=== PATIENT | female | born 1990 | race Caucasian/White ===

== ENCOUNTER 2018-10-05 00:01 | Emergency (ER) | payer OTHER ==
--- NOTE | 2018-10-05 00:20 | C.PDOC ---
History Of Present Illness 28 y/o female presents to the ED complaining of intermittent chest pain for 3 days. States she felt panicked tonight, and as if she might . 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 She otherwise denies any recent viral il lness, fevers, chills, SOB, nausea, vomiting, numbness, or weakness. Patient is speaking in complete sentences. Time Seen by Provider: 10/05/18 00:19 Chief Complaint (Nursing): Chest Pain History Per: Patient History/Exam Limitations: no limitations Onset/Duration Of Symptoms: Days (x 3), Intermittent Episodes Current Symptoms Are (Timing): Still Present Severity: Moderate Pain Scale Rating Of: 5 Quality: "Pain" Exacerbating Factors: None Recent travel outside of the [place]: No Past Medical History Reviewed: Historical Data, Nursing Documentation, Vital Signs Vital Signs: Last Vital Signs Temp 98 F 10/05/18 00:11 Pulse 78 10/05/18 00:11 Resp 18 10/05/18 00:11 BP 117/79 10/05/18 00:11 Pulse Ox 98 10/05/18 00:11 - Medical History PMH: No Chronic Diseases Surgical History: No Surg Hx Family History: States: No Known Family Hx - Social History Hx Alcohol Use: No Hx Substance Use: No - Immunization History Hx Tetanus Toxoid Vaccination: No Hx Influenza Vaccination: No Hx Pneumococcal Vaccination: No Review Of Systems Constitutional: Negative for: Fever, Chills, Sweats Eyes: Negative for: Vision Change Cardiovascular: Positive for: Chest Pain Respiratory: Negative for: Shortness of Breath, SOB with Excertion Gastrointestinal: Negative for: Nausea, Vomiting, Abdominal Pain Neurological: Negative for: Weakness, Numbness, Dizziness Psych: Positive for: Anxiety Physical Exam - Physical Exam Appears: Non-toxic, No Acute Distress, Other (Appears anxious) Skin: Warm, Dry Head: Normacephalic Eye(s): bilateral: Normal Inspection Oral Mucosa: Moist Neck: Normal ROM Chest: Symmetrical, No Tenderness Cardiovascular: Rhythm Regular Respiratory: No Rales, No Rhonchi, No Wheezing Gastrointestinal/Abdominal: Soft, No Tenderness, No Distention Extremity: Normal ROM Extremity: Bilateral: Atraumatic, Normal Color And Temperature Pulses: Left Dorsalis Pedis: Normal, Right Dorsalis Pedis: Normal Neurological/Psych: Oriented x3 Gait: Steady ED Course And Treatment - Laboratory Results Result Diagrams: 10/05/18 00:51 10/05/18 00:51 ECG: Interpreted By Me, Viewed By Me ECG Rhythm: Sinus Rhythm (85), Nonspecific Changes O2 Sat by Pulse Oximetry: 98 (RA) Pulse Ox Interpretation: Normal - Radiology CXR: Interpreted by Me, Viewed By Me CXR Interpretation: No: Infiltrates, Fracture, Pnemothorax Progress Note: Blood work and urine sent to the lab. EKG reviewed. Patient given 325mg Aspirin x1. Reevaluation Time: 02:58 Reassessment Condition: Improved Medical Decision Making Medical Decision Making: I considered the following diagnoses: acute coronary syndrome, pulmonary embolism, lower respiratory infection, aortic dissection/aneurysm, pneumothorax, pericarditis, esophagitis/GERD, zoster and esophageal rupture but found them to be unlikely based on the history, physical exam, and diagnostics. My conclusions regarding the unlikely diagnoses were based on: the absence of significant EKG abnormalities, the lack of suggestive x-ray findings, the absence of significant abnormalities on cardiac monitoring, the absence of asymmetric pulses. P tis cp free and wants to go home Upon provider reevaluation patient is feeling better, is medically stable, and requires no further treatment in the ED at this time. Patient will be discharged home . Counseling was provided and all questions were answered regarding diagnosis and need for follow up with the referred clinic. There is agreement to discharge plan. Return if symptoms persist or worsen. Disposition Counseled Patient/Family Regarding: Studies Performed, Diagnosis, Need For Followup - Disposition Referrals: [facility] [Outside] [facility] [Outside] Disposition: HOME/ ROUTINE Disposition Time: 00:40 Condition: FAIR Additional Instructions: Please return if symptoms recur Instructions: Costochondritis (DC), Anxiety, Adult (DC) Forms: [employer] (Tunisian) - Clinical Impression Clinical Impression: Costochondral chest pain, Anxiety - Scribe Statement The provider has reviewed the documentation as recorded by the Halima Sullivan Provider Attestation: All medical record entries made by the Halima were at my direction and personally dictated by me. I have reviewed the chart and agree that the record accurately reflects my personal performance of the history, physical exam, medical decision making, and the department course for this patient. I have also personally directed, reviewed, and agree with the discharge instructions and disposition.
[2018-10-05] MEDS ORDERED: Aspirin 325 mg EC Tablets PO STA (00:45)
[2018-10-05 00:57] LABS: BASO % 0.5 % (0.0-2.0); EOS # 0.1 K/uL (0.0-0.7); EOS % 1.1 % (0.0-4.0); HEMOGLOBIN 13.9 g/dL (11.0-16.0); LYMPH # 2.3 K/uL (1.0-4.3); LYMPH % 30.4 % (20.0-40.0); MEAN CELL VOLUME 92.1 fL (81.0-99.0); MEAN CORPUSCULAR HEMOGLOBIN 30.9 pg (27.0-31.0); MEAN CORPUSCULAR HGB CONC 33.6 g/dL (33.0-37.0); MEAN PLATELET VOLUME 7.9 fL (7.2-11.7); MONO # 0.6 K/uL (0.0-0.8); MONO % 7.8 % (0.0-10.0); NEUT # 4.6 K/uL (1.8-7.0); NEUT % 60.2 % (50.0-75.0); RBC 4.49 Mil/uL (3.80-5.20); RED CELL DISTRIBUTION WIDTH 13.1 % (11.5-14.5); WHITE BLOOD COUNT 7.6 K/uL (4.8-10.8)
[2018-10-05 00:59] LABS: URINE BILIRUBIN NEGATIVE (NEGATIVE); URINE BLOOD NEGATIVE (NEGATIVE); URINE CLARITY Clear (Clear); URINE COLOR Straw (YELLOW); URINE GLUCOSE (UA) NORMAL (Normal); URINE LEUKOCYTE ESTERASE NEG Leu/uL (Negative); URINE PROTEIN NEGATIVE (NEGATIVE); URINE UROBILINOGEN NORMAL mg/dL (0.2-1.0)
[2018-10-05 01:04] LABS: HCG,QUALITATIVE URINE NEGATIVE (NEGATIVE)
[2018-10-05 01:07] LABS: ALB/GLOB RATIO 1.6 (1.0-2.1); ALBUMIN 4.8 g/dL (3.5-5.0); ALT/SGPT 28 U/L (9-52); AST/SGOT 25 U/L (14-36); BLOOD UREA NITROGEN 19 mg/dL (7-17); CALCIUM 8.8 mg/dl (8.6-10.4); GFR NON-AFRICAN AMERICAN > 60
[2018-10-05 01:13] LABS: BARBITURATES, UR NEGATIVE (NEGATIVE); BENZODIAZEPINES, UR NEGATIVE (NEGATIVE); OPIATES, UR NEGATIVE (NEGATIVE); PHENCYCLIDINE, UR NEGATIVE (NEGATIVE)
[2018-10-05 03:15] VITALS: BP 116/78; PULSE 84; RESP 20; TEMP 98.1; O2SAT 97
--- NOTE | 2018-10-05 09:08 | RAD ---
HISTORY: cp COMPARISON: No prior. TECHNIQUE: Chest PA and lateral FINDINGS: LUNGS: Right middle lobe consolidation, likely pneumonia or atelectasis, silhouettes the right heart border. Please note that chest x-ray has limited sensitivity for the detection of pulmonary masses. PLEURA: No significant pleural effusion identified. No definite pneumothorax . CARDIOVASCULAR: Heart size appears within normal limits. No atherosclerotic calcification present. OSSEOUS STRUCTURES: No acute osseous abnormality identified. VISUALIZED UPPER ABDOMEN: Unremarkable. OTHER FINDINGS: None. IMPRESSION: Right middle lobe consolidation, likely pneumonia or atelectasis, silhouettes the right heart border. Study marked for PA review.
--- NOTE | 2018-10-06 16:10 | CARD ---
APPROVED REPORT Date of service: 10/05/2018 EKG Measurement Heart [id number] <Conclusion> Normal sinus rhythm with sinus arrhythmia Possible Left atrial enlargement Borderline ECG
== END 2018-10-05 03:15 | disposition home or self-care (01) ==
LOC: C.ER 00:01
DX: F41.9 Anxiety disorder, unspecified (principal); R07.89 Other chest pain